=== PATIENT | female | born 1955 | race Caucasian/White ===

== ENCOUNTER 2016-07-26 12:07 | Emergency (ER) | payer OTHER ==
--- NOTE | ~2016-07-26 | CR181 ---
[facility] A Service of [facility] & [facility] RADIOLOGY TEXT RESULTS PATIENT: MICHAEL PALOMARES LOCATION: SED : 51 UNIT #: [id number] AGE: [address]: Srinivasan Guzmán MD SEX: F ORDER DR: [id number] [address] [id number] E MR#: [id number] Acc #: [id number] NAME: MICHAEL PALOMARES : 1955 SEX: F STUDY DATE/TIME: 07/26/2016 13:34 UNIT: SED ROOM: STUDY DESCRIPTION: CR Lumbar Spine 2 or 3 Views Attending Physician: Srinivasan Guzmán M.D. Ordering Physician: Srinivasan Guzmán M.D. Primary Care Physician: Paolo Hawkins Jr., A.P.R.N. MEDICAL IMAGING REPORT This report is preliminary unless electronic signature is present. EXAM Lumbosacral spine HISTORY Low back pain for months. FINDINGS AP, lateral and spot views are submitted. The study is extremely limited to the patient's obesity. The patient has disc space narrowing at L4-L5 and there is normal alignment. No subluxation or fractures are seen. There is extensive marginal spur formation. CONCLUSION Limited study due to the patient's size. Chronic degenerative disc disease at the L4-L5 level. No fractures or subluxation. Dictated by... Noé Solis M.D. THIS IS AN ELECTRONICALLY VERIFIED REPORT Noé Solis M.D. at 07/27/2016 3:22 PM ZHANNA/reyes TD: 07/26/2016 16:57 JOB #: [id number] MEDICAL IMAGING REPORT Page 1 of 1
[~2016-07-26 12:07] MED LIST: ACETAMINOPHEN PO; ADVAIR 2501 DISK W/D; ADVAIR 2501 DISK W/D PO; ALAVERT10 MG PO; ALBUTEROL MININEB; ALBUTEROL MININEB NEB; ALBUTEROL17 GM; ALBUTEROL17 GM INH; ALLERGY RELIEF10 M1 PO; ASPIRIN; ASPIRIN PO; ASPIRIN325 M1 PO; ATROVENT NEB; AUGMENTIN PO; AZITHROMYCIN250 MG PO; BAYER ASPIRIN325 M1 PO; CALTRATE 600 W-1 TAB PO; CARVEDILOL6.25 MG PO; CEPHALEXIN500 M1 PO; CIPRO PO; CLARITIN10 M1 PO; CLARITIN10 M3 PO; CLARITIN10 MG PO; CLARITIN5 MG PO; CLEOCIN HCL300 M1 PO; CLEOCIN PO; CLINDAMYCIN HC300 MG PO; COMBIVENT INH14.7 GM INH; COMBIVENT U/D3 M1 NEB; DOXYCYCLINE PO; DYAZIDE 37.5/251 CAP PO; FERRO-TIME325 MG PO; FOLIC ACID1 MG; FOLIC ACID1 MG PO; FUROSEMIDE40 MG PO; GLIPIZIDE10 MG PO; GLIPIZIDE10 MG/BOTT PO; GLUCOPHAGE500 M1 PO; GLUCOTROL; GLUCOTROL PO; GLUCOTROL10 MG PO; IPRATROPIUM0.2 MG/ML NEB; JANUVIA PO; JANUVIA25 MG PO; JANUVIA50 MG PO; K-DUR20 ME1 PO; K-DUR20 ME2 PO; KEFLEX PO; KEFLEX500 MG PO; KLOR-CON PO; LANTUS SOLOSTAR3 ML SQ; LANTUS SOLOSTAR3 ML SUBQ; LANTUS SUBQ; LASIX PO; LASIX80 MG PO; LEVAQUIN PO; LEVOFLOXACIN500 MG PO; LISINOPRIL PO; LORTAB 10-5001 EACH PO; LORTAB 5-325 M1 EACH PO; LORTAB 5/500 TA1 TA2 PO; LORTAB 7.5-3251 EACH PO; LORTAB 7.5-5001 TAB PO; LORTAB 7.51 TAB 7.5/ PO; LOTRIMIN30 GM TOP; MAXZIDE 75/50 T1 TA1 PO; MAXZIDE 75/50 T1 TAB; MAXZIDE 75/50 T1 TAB PO; MEDROL PO; METFORMIN HCL500 M1 PO; METFORMIN PO; MOBIC15 MG PO; NITROSTAT0.4 MG SL; OMEPRAZOLE20 M1 PO; OMEPRAZOLE40 M1 PO; OMEPRAZOLE40 MG PO; POTASIUM PO; POTASSIUM1 UDCAP.SA PO; PREDNISONE PO; PRILOSEC PO; PRILOSEC40 MG PO; PRINIVIL40 MG PO; PYRIDIUM100 MG PO; REQUIP1 MG PO; REQUIP4 MG; RISPERIDONE PO; ROBAXIN500 MG PO; SIMVASTATIN40 MG PO; SINGULAIR; SINGULAIR PO; SPECTAZOLE TOP; SPIRIVA18 MCG INH; SYMBICORT INH; SYMBICORT80 INH; SYNTHROID PO; SYNTHROID75 MCG PO; SYNTHROID88 MCG PO; TEMOVATE 0.05%15 G1 TOP; TEMOVATE 0.05%15 GM EXT; TIGECYCLINE; TOPAMAX50 MG PO; TRIAMTERENE-HC1 EAC1 PO; UNIVASC7.5 MG PO; VENTOLIN5 MG/ML; VIBRAMYCIN100 M1 PO; VICODIN 5/1 TAB 5/50 PO; VICODIN 5/500 T1 TAB PO; VICODIN PO; VITAMIN D1000 UNI1 PO; VITAMIN D1000 UNIT PO; VOLTAREN75 MG PO; ZANTAC; ZESTRIL40 MG PO; ZITHROMAX PO; ZOCOR PO; ZOFRAN PO; [UNRECOGNIZED DRUG - OTHER]; [UNRECOGNIZED DRUG - OTHER] PO
[2016-07-26] MEDS ORDERED: JANUVIA25 MG (12:16)
[2016-07-26] MEDS ORDERED: REQUIP0.25 MG (12:16)
[2016-07-26] MEDS ORDERED: SINGULAIR4 M1 (12:17)
[2016-07-26] MEDS ORDERED: NITROSTAT0.4 MG (12:17)
[2016-07-26] MEDS ORDERED: CALCIUM 500 +1 EAC3 (12:18)
[2016-07-26] MEDS ORDERED: GLIPIZIDE10 MG (12:18)
[2016-07-26] MEDS ORDERED: QBRELIS1 MG/1 ML (12:18)
[2016-07-26] MEDS ORDERED: PRILOSEC10 M1 (12:18)
[2016-07-26] MEDS ORDERED: COREG6.25 M1 (12:18)
== END 2016-07-26 14:09 | disposition home or self-care (01) ==
LOC: SED 12:07
DX: M54.41 Lumbago with sciatica, right side (principal); J44.9 Chronic obstructive pulmonary disease, unspecified; I10 Essential (primary) hypertension; F17.200 Nicotine dependence, unspecified, uncomplicated; Z88.0 Allergy status to penicillin; Z88.2 Allergy status to sulfonamides; Z88.5 Allergy status to narcotic agent; Z91.040 Latex allergy status; Z88.8 Allergy status to other drugs, medicaments and biological substances; Z79.4 Long term (current) use of insulin; Z79.899 Other long term (current) drug therapy; Z91.041 Radiographic dye allergy status
CPT/HCPCS: 72100; 99283